=== PATIENT | female | born 1965 | race Caucasian/White ===

== ENCOUNTER 2017-05-07 13:21 | Emergency (ER) | payer OTHER ==
[~2017-05-07] VITALS: Ht 162.6 cm; Wt 89.4 kg
[2017-05-07 13:30] VITALS: BP 129/89
--- NOTE | 2017-05-07 13:30 | NUR ---
Pt sent to lobby to wait for x-ray.
--- NOTE | 2017-05-07 16:25 | NUR ---
Pt taken to bed 12.
--- NOTE | 2017-05-07 16:28 | NUR ---
PATIENT PRESENTS TO ED WITH C/O RT FOOT PAIN SINCE THIS MORNING; DENIES ANY TRAUMA/INJURY;NO DEFORMITY/HEMATOMA NOTE;PT UNABLE TO BEAR WT ON RT FOOT;DENIES N/V/D; SKIN IS PINK/WARM/DRY; AAOX4 WITH EVEN AND STEADY GAIT; LUNGS CLEAR BL; HR EVEN AND REGULAR; PT DENIES ANY FEVER, CP, SOB, OR COUGH AT THIS TIME; PATIENT STATES PAIN OF 9/10 AT THIS TIME; VSS; PATIENT POSITIONED FOR COMFORT; HOB ELEVATED; BEDRAILS UP X2; BED DOWN. ER MD MADE AWARE OF PT STATUS.
[2017-05-07] MEDS ORDERED: KETOROLAC 60 MG/2 ML VIAL IM ONE (16:55)
[2017-05-07 17:19] VITALS: BP 132/75
--- NOTE | 2017-05-07 17:19 | NUR ---
Patient discharged with v/s stable. Written and verbal after care instructions given and explained. Patient alert, oriented and verbalized understanding of instructions. Ambulatory with steady gait. All questions addressed prior to discharge. ID band removed. Patient advised to follow up with PMD. Rx of NORCO AND MOTRIN given. Patient educated on indication of medication including possible reaction and side effects. Opportunity to ask questions provided and answered.
== END 2017-05-07 17:19 | disposition home or self-care (01) ==
LOC: MED 13:21
DX: M79.671 Pain in right foot (principal); I10 Essential (primary) hypertension
CPT/HCPCS: 73630; 96372; 99284; J1885

== ENCOUNTER 2021-06-16 13:52 | Emergency (ER) | payer OTHER ==
[~2021-06-16] VITALS: Ht 160 cm; Wt 74.8 kg
[2021-06-16 14:09] VITALS: BP 146/93
--- NOTE | 2021-06-16 15:00 | NUR ---
PATIENT AWAKE IN BED, RESPIRTATIONS EVEN AND UNLABORED. WILL CONTINUE TO MONITOR.
[2021-06-16] MEDS ORDERED: NAPR-54 PO (15:03)
--- NOTE | 2021-06-16 15:14 | NUR ---
Patient discharged with v/s stable. Written and verbal after care instructions ABOUT WOUND CARE given and explained. Patient alert, oriented and verbalized understanding of instructions. Ambulatory with steady gait. All questions addressed prior to discharge. ID band removed. Patient advised to follow up with PMD. Rx of NAPROSYN given.
--- NOTE | 2021-06-16 15:15 | NUR ---
The patient's care was reviewed and supervised by Ericka Campuzano RN.
== END 2021-06-16 15:15 | disposition home or self-care (01) ==
LOC: MED 13:52
DX: L97.818 Non-pressure chronic ulcer of other part of right lower leg with other specified severity (principal); Z48.00 Encounter for change or removal of nonsurgical wound dressing; I10 Essential (primary) hypertension; Z79.899 Other long term (current) drug therapy
CPT/HCPCS: 99282

== ENCOUNTER 2021-10-27 15:57 | Emergency (ER) | payer OTHER ==
[~2021-10-27] VITALS: Ht 160 cm; Wt 69.9 kg
[~2021-10-27 15:57] MED LIST: NAPR-54 PO
--- NOTE | 2021-10-27 16:10 | NUR ---
56 y/o female, c/o sore throat that started this morning. denies nausea, vomiting, diarrhea. skin is pink/warm/dry. a&o x4 with even and steady gait. lungs clear bl, heart rate even and regular. pt denies any fever, cp, sob, or cough at this time. pt states pain is 8/10 at this time. vss. ermd made aware of pt. pmh: htn nka med: lisinopril, hydrochlorothiazide
[2021-10-27 16:11] VITALS: BP 142/83
[2021-10-27] MEDS ORDERED: DICYCLOMINE HCL LIQUID 20 MG, ALUMINUM HYD/MAG/SIMETHICONE 30 ML, LIDOCAINE VISCOUS 2% ... PO ONE ×3 (17:40)
--- NOTE | 2021-10-27 17:48 | NUR ---
recyclable products sorter called for patient for blood draw but patient no where to be seen. per recyclable products sorter, will attempt again later.
--- NOTE | 2021-10-27 17:59 | NUR ---
ATTEMPTED TO CALL PT NAME FOR EKG BUT UNABLE TO LOCATE
[2021-10-27 18:56] LABS: BASOPHILS # (AUTO) 0.1 K/uL (0.00-0.22); BASOPHILS % (AUTO) 1.2 % (0.0-2.0); EOSINOPHILS # (AUTO) 0.1 K/uL (0-0.4); EOSINOPHILS % (AUTO) 1.9 % (0.0-4.0); HEMOGLOBIN 12.6 g/dL (12.0-16.0); LYMPHOCYTES % (AUTO) 36.6 % (20.5-51.1); MEAN CORPUSCULAR HEMOGLOBIN 27 pg (27-31); MEAN CORPUSCULAR HGB CONC 32 g/dL (33-37); MEAN CORPUSCULAR VOLUME 82.6 fL (80-94); MONOCYTES # (AUTO) 0.3 K/uL (0.8-1.0); MONOCYTES % (AUTO) 6.2 % (1.7-9.3); NEUTROPHILS # (AUTO) 2.9 K/uL (1.8-7.7); NEUTROPHILS % (AUTO) 54.1 % (42.2-75.2); PLATELET COUNT (AUTO) 285 K/uL (140-450); RED BLOOD CELL COUNT(AUTO) 4.73 MIL/uL (4.20-5.40); RED CELL DISTRIBUTION WIDTH 14.9 % (11.6-13.7); WHITE BLOOD COUNT (AUTO) 5.4 K/uL (4.8-10.8)
[2021-10-27 20:09] LABS: ALBUMIN 4.1 g/dL (3.4-5.0); ANION GAP 12.1 (8-16); ASPARTATE AMINOTRANSFERASE 20 U/L (15-37); CARBON DIOXIDE 28.7 mmol/L (21-32); CHLORIDE 99 mmol/L (98-107); CREATININE 0.6 mg/dL (0.6-1.3); GFR ARICAN-AMERICAN 133 mL/min (>90); GLUCOSE 85 mg/dL (74-106); LIPASE 148 U/L (73-393); POTASSIUM 3.8 mmol/L (3.5-5.1); SODIUM SERUM 136 mmol/L (136-145); TOTAL BILIRUBIN 0.5 mg/dL (0.0-1.0); UREA NITROGEN, BLOOD 12 mg/dL (7-18)
[2021-10-27] MEDS ORDERED: MAG-27 PO (20:31)
[2021-10-27] MEDS ORDERED: FAMO-90 PO (20:31)
[2021-10-27] MEDS ORDERED: ALUMINUM HYD/MAG/SIMETHICONE 30 ML UDC ONE (20:43)
[2021-10-27] MEDS ORDERED: DICYCLOMINE HCL LIQUID 10 MG/5 ML UDC ONE (20:43)
[2021-10-27 20:51] VITALS: BP 140/86
--- NOTE | 2021-10-27 20:53 | NUR ---
Patient discharged with v/s stable. Written and verbal after care instructions given and explained. Patient alert, oriented and verbalized understanding of instructions. Ambulatory with steady gait. All questions addressed prior to discharge. ID band removed. Patient advised to follow up with PMD. Rx of PEPCID AND MYLANTA MAX STRENGTH given. Patient educated on indication of medication including possible reaction and side effects. Opportunity to ask questions provided and answered. VSS, A/OX4, AMBULATORY, UNLABORED BREATHING, AND CALM DEMEANOR.
== END 2021-10-27 20:54 | disposition home or self-care (01) ==
LOC: MED 15:57
DX: J02.9 Acute pharyngitis, unspecified (principal); R10.13 Epigastric pain; I10 Essential (primary) hypertension
CPT/HCPCS: 36415; 71045; 80053; 83690; 84484; 85025; 93005; 99285

== ENCOUNTER 2022-10-26 14:15 | Emergency (ER) | payer OTHER ==
[~2022-10-26] VITALS: Ht 157.5 cm; Wt 68.0 kg
[~2022-10-26 14:15] MED LIST changes: +FAMO-90 PO; +MAG-27 PO
[2022-10-26 15:00] VITALS: BP 132/80; PULSE 68; RESP 18; TEMP 98; O2SAT 99
--- NOTE | 2022-10-26 18:35 | NUR ---
ESTEBAN Zambrano discharged patient.
== END 2022-10-26 18:35 | disposition home or self-care (01) ==
LOC: MED 14:15
DX: T18.8XXA Foreign body in other parts of alimentary tract, initial encounter (principal); I10 Essential (primary) hypertension; Z79.899 Other long term (current) drug therapy
CPT/HCPCS: 70360; 99283

== ENCOUNTER 2022-12-28 06:40 | Emergency (ER) | payer OTHER ==
[~2022-12-28] VITALS: Ht 154.9 cm; Wt 67.1 kg
[2022-12-28 06:44] VITALS: BP 139/89; PULSE 78; RESP 16; TEMP 97.4; O2SAT 97
[2022-12-28] MEDS ORDERED: ACETAMINOPHEN EXTRA STRENGTH 500 MG TAB PO ONE (07:15)
[2022-12-28] MEDS ORDERED: KETOROLAC 30 MG/ML VIAL IM ONE ×3 (07:15→07:55)
[2022-12-28] MEDS ORDERED: KETOROLAC 15 MG/ML VIAL ONE (07:48)
[2022-12-28] MEDS: KETOROLAC 30 MG/ML VIAL IM ONE ×2 (08:18→08:44)
[2022-12-28 09:00] VITALS: BP 178/94; PULSE 69; RESP 20; TEMP 97.4; O2SAT 100
== END 2022-12-28 09:00 | disposition home or self-care (01) ==
LOC: MED 06:40
DX: M79.672 Pain in left foot (principal); I10 Essential (primary) hypertension; Z79.899 Other long term (current) drug therapy
CPT/HCPCS: 73630; 96372; 99283; J1885; Q0092